=== PATIENT | female | born 1985 | race Two or more races ===

== ENCOUNTER 2019-02-15 09:42 | Emergency (ER) | payer OTHER ==
[~2019-02-15] VITALS: Ht 165.1 cm; Wt 59.0 kg
[~2019-02-15 09:42] MED LIST: PRENATAL CAPLE1 EACH PO
[2019-02-15] MEDS ORDERED: ZITHROMAX500 MG PO (14:48)
== END 2019-02-15 15:23 | disposition home or self-care (01) ==
LOC: ER 09:42
DX: J03.90 Acute tonsillitis, unspecified (principal); B96.0 Mycoplasma pneumoniae [M. pneumoniae] as the cause of diseases classified elsewhere

== ENCOUNTER 2019-09-30 11:18 | Outpatient (CLI) | payer OTHER ==
[~2019-09-30 11:18] MED LIST changes: +ZITHROMAX500 MG PO
== END 2019-09-30 11:22 | disposition home or self-care (01) ==
LOC: LAB 11:18
PROVIDERS: ATTEND Specialist
DX: Z03.818 Encounter for observation for suspected exposure to other biological agents ruled out (principal)

== ENCOUNTER 2019-09-30 11:51 | Inpatient (IN) | payer OTHER ==
[~2019-09-30] VITALS: Ht 165.1 cm; Wt 3.2 kg
== END 2019-10-14 13:44 | disposition home or self-care (01) | DRG 788 ==
LOC: O/R 10-11 06:18 → SURG-SUITE 10-11 06:18 → OB/GYN 10-11 07:15 → SURG-SUITE 10-11 19:56
PROVIDERS: ADMIT Specialist; ATTEND Specialist
PROC: 4A1HXCZ Monitoring of Products of Conception, Cardiac Rate, External Approach (ICD-10-PCS; 2019-10-11)
PROC: 10D00Z1 Extraction of Products of Conception, Low, Open Approach (ICD-10-PCS; principal; 2019-10-11 19:00)
DX: O82 Encounter for cesarean delivery without indication (principal); Z3A.39 39 weeks gestation of pregnancy; Z37.0 Single live birth